=== PATIENT | male | born 1955 | race Caucasian/White ===

== ENCOUNTER 2018-12-11 12:04 | Emergency (ER) | payer BC ==
[2018-12-11 12:36] LABS: ABSOLUTE EOSINOPHILS # (AUTO) 0.2 10^3/uL (0.0-0.6); ABSOLUTE LYMPHOCYTES (AUTO) 0.9 10^3/uL (0.5-4.7); ABSOLUTE MONOCYTES (AUTO) 0.6 10^3/uL (0.1-1.4); ABSOLUTE NEUT (AUTO) 3.8 10^3/uL (1.7-8.2); BASOPHILS % (AUTO) 0.4 % (0-2); EOSINOPHILS % (AUTO) 3.8 % (0-6); HEMATOCRIT 40.6 % (37.9-51.0); HEMOGLOBIN 13.6 g/dL (13.5-17.0); LYMPHOCYTES % (AUTO) 15.8 % (13-45); MEAN CORPUSCULAR HEMOGLOBIN 30.9 pg (27.0-33.4); MEAN CORPUSCULAR HGB CONC 33.4 g/dL (32.0-36.0); MEAN CORPUSCULAR VOLUME 92 fl (80-97); MONOCYTES % (AUTO) 11.4 % (3-13); PLATELET COUNT 150 10^3/uL (150-450); RED CELL DISTRIBUTION WIDTH 14.1 % (11.5-14.0); SEGMENTED NEUTROPHILS % (AUTO) 68.6 % (42-78); TOTAL CELLS COUNTED % (AUTO) 100 %; WHITE BLOOD COUNT 5.5 10^3/uL (4.0-10.5)
[2018-12-11 12:43] LABS: PARTIAL THROMBOPLASTIN TIME 32.4 SEC (23.5-35.8); PROTHROMBIN TIME 21.2 SEC (11.4-15.4)
[2018-12-11 12:46] LABS: D-DIMER 1.65 ug/mL (0.00-0.50)
[2018-12-11 12:54] LABS: ALBUMIN 4.3 g/dL (3.5-5.0); ALKALINE PHOSPHATASE 74 U/L (38-126); ANION GAP 11 (5-19); ASPARTATE AMINO TRANSFERASE 59 U/L (17-59); BILIRUBIN,DIRECT 0.2 mg/dL (0.0-0.4); BILIRUBIN,TOTAL 0.5 mg/dL (0.2-1.3); BLOOD UREA NITROGEN 18 mg/dL (7-20); CALCIUM 9.3 mg/dL (8.4-10.2); CARBON DIOXIDE 27 mmol/L (22-30); CHLORIDE 104 mmol/L (98-107); GLUCOSE 138 mg/dL (75-110); TOTAL PROTEIN 7.4 g/dL (6.3-8.2)
--- NOTE | 2018-12-11 13:33 | RADIOLOGY REPORT (SQ) ---
EXAM DESCRIPTION: CHEST SINGLE VIEW COMPLETED DATE/TIME: 12/11/2018 1:18 pm REASON FOR STUDY: SOB COMPARISON: 07/06/2011. NUMBER OF VIEWS: One view. TECHNIQUE: Single frontal radiographic view of the chest acquired. LIMITATIONS: None. FINDINGS: LUNGS AND PLEURA: Mild atelectasis/ scarring in the lung bases. No lobar infiltrates, mas ses or pneumothorax. No pleural effusion. MEDIASTINUM AND HILAR STRUCTURES: No masses. Contour normal. HEART AND VASCULAR STRUCTURES: Heart enlarged without failure. Normal vasculature. BONES: No acute findings. HARDWARE: None in the chest. OTHER: No other significant finding. IMPRESSION: HEART ENLARGED WITHOUT FAILURE. NO ACUTE RADIOGRAPHIC FINDING IN THE CHEST. TECHNICAL DOCUMENTATION: JOB ID: [id number] [employer]- All Rights Reserved Reading location - IP/workstation name: [email or web address]
--- NOTE | 2018-12-11 14:32 | RADIOLOGY REPORT (SQ) ---
EXAM DESCRIPTION: CTA CHEST COMPLETED DATE/TIME: 12/11/2018 2:15 pm REASON FOR STUDY: Short of breath, elevated d-dimer, on Coumadin COMPARISON: 08/08/2015 TECHNIQUE: CT scan of the chest performed using helical scanning technique with dynamic intravenous contrast injection. Images reviewed with lung, soft tissue and bone windows. Reconstructed coronal and sagittal MPR images reviewed. Additional 3 dimensional post-processing performed to develop Maximal Intensity Projection images ([place] P). All images stored on PACS. All CT scanners at this facility use dose modulation, iterative reconstruction, and/or weight based d osing when appropriate to reduce radiation dose to as low as reasonably achievable (ALARA). [facility]: Dose Right [facility]: CareDose [facility]: Dose Right [facility]: Teradose 4D [facility]: Tears for Life CONTRAST TYPE AND DOSE: contrast/concentration: Isovue 350.00 mg/ml; Total Contrast Delivered: 75.0 ml; Total Saline Delivered: 80.0 ml Contrast bolus optimized for the pulmonary arteries. Not diagnostic for the aorta. RENAL FUNCTION: BUN 18 creatinine 0.97 RADIATION DOSE: CT Rad equipment meets quality standard of care and radiation dose reduction techniq ues were employed. CTDIvol: 26.4 - 37.2 mGy. DLP: 1478 mGy-cm. . LIMITATIONS: None. FINDINGS: LUNGS AND PLEURA: Small left pleural effusion. There is opacification in the left lower l obe with some air bronchograms. AORTA AND GREAT VESSELS: No aneurysm. Contrast bolus not optimized for the aorta. HEART: No pericardial effusion. Moderate to marked coronary artery calcifications. PULMONARY ARTERIES: No emboli visualized in the main pulmonary arteries or the segmental branches. HILAR AND MEDIASTINAL STRUCTURES: There are small mediastinal nodes. The largest is periaortic and m easures 12 mm in short axis. HARDWARE: None in the chest. UPPER ABDOMEN: There is small amount of ascites around the liver and spleen. THYROID AND OTHER SOFT TISSUES: No masses. No adenopathy. BONES: No acute or significant finding. 3D MIPS: Confirm above findings. OTHER: No other significant finding. IMPRESSION: There is no pulmonary embolus. There is no aortic aneurysm. There is a small left pleu ral effusion. There is airspace disease in the left lower lobe, pneumonia versus atelectasis. There is a small amount of ascites. There is mild mediastinal adenopathy. COMMENT: Quality ID # [id number]: Final reports with documentation of one or more dose reduction techniques (e.g., Automated exposure control, adjustment of the mA and/or kV according to patient size, use of iterative reconstruction technique) TECHNICAL DOCUMENTATION: JOB ID: [id number] [employer]- All Rights Reserved Reading location - IP/workstation name: [email or web address]
--- NOTE | 2018-12-11 14:35 | ER Document Report ---
Entered by DUNIA SAINI SCRIBE 12/11/18 1252 Acting as scribe for:SHABBIR CONNELL MD ED Respiratory Problem - General Chief Complaint: Abnormal Lab Results Stated Complaint: ABNORMAL LABS Time Seen by Provider: 12/11/18 12:34 Primary Care Provider: VALE THRASHER MD [Primary Care Provider] - Follow up as needed Mode of Arrival: Ambulatory Information source: Patient Notes: 63-year-old male who presents to the emergency department today with concerns of "having another blood clot". Patient was diagnosed with a DVT and PE in 2008 and has been on Coumadin since. Patient states that he had a cardiac catheterization "about 3 weeks ago" which would be around the end of October or beginning of November and had to stop his Coumadin for several days before and after, resuming again on November 30. Patient states the cardiac catheterization was unremarkable, no stents were placed. Patient states that he went to his heart doctor on December 04 and told her "something was wrong", stating he was having increased shortness of breath. They did lab work including a d-dimer on that day. Patient states he had not heard any results from the blood work so he called today and they told him his d-dimer was elevated at "1300" and to go to the ED. Patient states that he went to his primary care doctor for PT/INR labwork on 12/06 and his INR was 3.6 so he was told to stop the Coumadin for 2 days and start back taking it again on December 09 which was two days ago. Patient states he has had some shortness of breath for the last several weeks that has gotten much worse recently. Patient [place] not stop enough for breaks" over this past weekend. Patient does say that he was short of breath prior to this trip but mentions that it is much worse now since returning. Patient states prior to going to the mountains he could ride a bike and not really get short of breath but now just walking from his car to the door he becomes extremely short of breath. TRAVEL OUTSIDE OF THE [place] IN LAST 30 DAYS: No - Related Data Allergies/Adverse Reactions: No Known Allergies Allergy (Verified 08/08/15 15:01) Home Medications: metformin, metroprolol, torvastatin, coumadin, lasix Past Medical History - General Information source: Patient - Social History Smoking Status: Never Smoker Cigarette use (# per day): No Chew tobacco use (# tins/day): No Frequency of alcohol use: Heavy - Reports drinking "a few" glasses of wine several nights a week Drug Abuse: None Occupation: Salesman Lives with: Spouse/Significant other Family History: Reviewed & Not Pertinent Patient has suicidal ideation: No Patient has homicidal ideation: No - Past Medical History Cardiac Medical History: Reports: Hx Coronary Artery Disease, Hx DVT, Hx Hy percholesterolemia, Hx Hypertension - meds x 5 yrs, Hx Pulmonary Embolism - 2009-Coumadin Pulmonary Medical History: Reports: Hx Sleep Apnea - c pap at night Endocrine Medical History: Reports: Hx Diabetes Mellitus Type 2 Traumatic Medical History: Reports: Hx Fractures - right wrist x 2 playing sports Past Surgical History: Reports: Hx Cardiac Catheterization - Late October or early November 2018 -patient states the catheterization wa - Immunizations Hx Diphtheria, Pertussis, Tetanus Vaccination: No Hx Pneumococcal Vaccination: 07/07/11 Review of Systems - Review of Systems Constitutional: No symptoms reported EENT: No symptoms reported Cardiovascular: No symptoms reported Respiratory: See HPI, Short of breath Gastrointestinal: No symptoms reported Genitourinary: No symptoms reported Male Genitourinary: No symptoms reported Musculoskeletal: No symptoms reported Skin: No symptoms reported Hematologic/Lymphatic: No symptoms reported Neurological/Psychological: No symptoms reported -: Yes All other systems reviewed and negative Physical Exam - Vital signs Vitals: Temp Pulse Resp BP Pulse Ox 97.2 F 86 24 H 142/81 H 97 12/11/18 12:09 12/11/18 12:09 12/11/18 12:09 12/11/18 12:09 12/11/18 12:09 - Notes Notes: Physical Exam: General: Alert, appears short of breath. HEENT: Normocephalic. Atraumatic. PERRL. Extraocular movements intact. Oropha rynx clear. Neck: Supple. Non-tender. Respiratory: Appears dyspneic. Respiratory rate 24. Breath sounds are essentially clear. There may be some faint wheezes when I have the patient take a deep breath and cough. Pulse ox is 97% on room air. Cardiovascular: Regular rate and rhythm, heart rate 100. Abdominal: Obese. Non-tender. No distension. Normal Bowel Sounds. Back: No gross abnormalities. Extremities: Moves all four extremities. Upper extremities: Normal inspection. Normal ROM. Lower extremities: Normal inspection. No edema. Normal ROM. Neurological: Normal cognition. AAOx4. Normal speech. Psychological: Seems anxious. Skin: Warm. Dry. Normal color. Course - Re-evaluation Re-evalutation: 12/11/18 17:01 ABG shows a pH 7.41, PCO2 of 40.9, PO2 of 82.9 When asking about a history of asthma or COPD, it turns out the patient has used albuterol in the past, and talk to his primary care provider in the last few days and got an albuterol inhaler prescribed but has not picked it up yet. He had not used albuterol in at least 8 months. He has never been a smoker. The rest of his lab work is unremarkable. The CTA of the chest does not show anything to explain his dyspnea. We will give the patient a DuoNeb and see if that improves his symptoms. 12/11/18 17:30 After the DuoNeb treatment, the faint wheezes seem to have resolved, the patient states he can tell a difference and feels better when he takes a deep breath. I did discuss the case with his primary care provider Dr. Thrasher. Based on the duration of his symptoms, he will be started on Advair and have the albuterol only for a rescue inhaler. We did discuss Trelogy, but he does not have COPD, he has never been a smoker. - Vital Signs Vital signs: Temp Pulse Resp BP Pulse Ox 97.2 F 96 14 171/99 H 97 12/11/18 12:09 12/11/18 13:09 12/11/18 15:42 12/11/18 15:42 12/11/18 13:09 - Laboratory Result Diagrams: 12/11/18 12:25 12/11/18 12:25 Laboratory results interpreted by me: 12/11/18 12/11/18 12/11/18 12:25 12:25 12:25 RDW 14.1 H PT 21.2 H D-Dimer 1.65 H Carbonic Acid ABG pH ABG pCO2 ABG pO2 ABG HCO3 ABG Total CO2 ABG O2 Saturation Glucose 138 H NT-Pro-B Natriuret Pep 12/11/18 12/11/18 12/11/18 12:25 15:45 16:12 RDW PT D-Dimer Carbonic Acid 1.75 H ABG pH 7.31 L ABG pCO2 58.0 H ABG pO2 22.2 L* ABG HCO3 28.8 H 25.5 H ABG Total CO2 30.6 H ABG O2 Saturation 32.6 L Glucose NT-Pro-B Natriuret Pep 1680 H - Diagnostic Test Radiology reviewed: Image reviewed, Reports reviewed - Chest x-ray shows enlarged heart without failure and no other abnormality. CTa scan of the chest does not show pulmonary embolus. There is small left pleural effusion. There is airspace disease in the left lower lobe, pneumonia versus atelectasis. There is a small amount of ascites. - EKG Interpretation by Me EKG shows normal: Sinus rhythm, Endeavor, Intervals, QRS Complexes, ST-T Waves Rate: Tachycardia - 100 Rhythm: PVC's Endeavor/QRS: RBBB When compared to previous EKG there are: No significant change Discharge - Discharge Clinical Impression: Reactive airway disease Qualifiers: Asthma severity: mild Asthma persistence: persistent Asthma complication type: uncomplicated Qualified Code(s): J45.30 - Mild persistent asthma, uncomplicated Condition: Stable Disposition: HOME, SELF-CARE Additional Instructions: Your evaluation today suggests that your persistent shortness of breath is related to reactive airways disease, or asthma. Use the Advair Diskus once every 12 hours as prescribed. It may take up to 1 week before the Advair is fully effective. Use the albuterol inhaler as prescribed for shortness of breath and wheezing. Follow-up with Dr. Thrasher in 1 to 2 weeks for recheck. RETURN TO THE EMERGENCY ROOM IF ANY NEW OR WORSENING SYMPTOMS. Prescriptions: Advair Discus 250-50 1 inh IH Q12 30 Days #1 Albuterol Sulfate [Proair Hfa Inhalation Aerosol 8.5 gm Mdi] 2 puff IH Q4 PRN #1 mdi PRN Reason: Referrals: VALE THRASHER MD [Primary Care Provider] - Follow up in 1 week Print Language: Slovenian Scribe Attestation: 12/11/18 17:32 I personally performed the services described in the documentation, reviewed and edited the documentation which was dictated to the scribe in my presence, and it accurately records my words and actions. I personally performed the services described in the documentation, reviewed and edited the documentation which was dictated to the scribe in my presence, and it accurately records my words and actions.
[2018-12-11 15:56] LABS: ARTERIAL BLOOD BASE EXCESS 1.3 mmol/L; ARTERIAL BLOOD H2CO3 1.75 mmol/L (1.05-1.35); ARTERIAL BLOOD HCO3 28.8 mmol/L (20-24); ARTERIAL BLOOD O2 SATURATION 32.6 % (94-98); ARTERIAL BLOOD PH 7.31 (7.35-7.45); ARTERIAL BLOOD TOTAL CO2 30.6 mmol/L (23-27)
[2018-12-11 15:58] LABS: ARTERIAL BLOOD FIO2 21%
[2018-12-11 16:01] LABS: ARTERIAL BLOOD PO2 22.2 mmHg (80-100)
[2018-12-11 16:42] LABS: ARTERIAL BLOOD BASE EXCESS 0.8 mmol/L; ARTERIAL BLOOD FIO2 ROOM AIR; ARTERIAL BLOOD H2CO3 1.23 mmol/L (1.05-1.35); ARTERIAL BLOOD HCO3 25.5 mmol/L (20-24); ARTERIAL BLOOD O2 SATURATION 96.3 % (94-98); ARTERIAL BLOOD PCO2 40.9 mmHg (35-45); ARTERIAL BLOOD PH 7.41 (7.35-7.45); ARTERIAL BLOOD PO2 82.9 mmHg (80-100); ARTERIAL BLOOD TOTAL CO2 26.7 mmol/L (23-27)
--- NOTE | 2018-12-11 16:55 | EKG REPORT ---
SEVERITY:- ABNORMAL ECG - SINUS TACHYCARDIA VENTRICULAR PREMATURE COMPLEX RIGHT BUNDLE BRANCH BLOCK : Confirmed by: Josie Pascual MD 11-Dec-2018 16:54:52
[2018-12-11] MEDS ORDERED: IPRATROPIUM/ALBUTEROL 0.5-2.5 MG/3 ML AMPUL NEB ONE (16:57)
[2018-12-11 18:06] VITALS: BP 165/97
== END 2018-12-11 18:07 | disposition home or self-care (01) ==
LOC: ER 12:04
DX: J45.30 Mild persistent asthma, uncomplicated (principal); R06.02 Shortness of breath; T48.6X6A Underdosing of antiasthmatics, initial encounter; Z91.128 Patient's intentional underdosing of medication regimen for other reason; Z91.14 Patient's other noncompliance with medication regimen; J90 Pleural effusion, not elsewhere classified; R18.8 Other ascites; I45.10 Unspecified right bundle-branch block; I49.3 Ventricular premature depolarization; I25.10 Atherosclerotic heart disease of native coronary artery without angina pectoris; I11.9 Hypertensive heart disease without heart failure; E78.00 Pure hypercholesterolemia, unspecified; E11.9 Type 2 diabetes mellitus without complications; Z79.84 Long term (current) use of oral hypoglycemic drugs; Z79.899 Other long term (current) drug therapy; Z86.718 Personal history of other venous thrombosis and embolism; Z86.711 Personal history of pulmonary embolism; Z98.890 Other specified postprocedural states
CPT/HCPCS: 93005; 94640; 99284; 36415; 82803; 85025; 85610; 85730; 80053; 85379; 83880; 71045; 71275; 93010; 36600; J7620